=== PATIENT | male | born 1960 | race Caucasian/White ===

== ENCOUNTER 2017-12-18 09:44 | Observation (INO) | payer OTHER ==
[~2017-12-18 09:44] MED LIST: CEFAZOLIN 2 GM/50 ML (PMX) 50 ML IVPB; ONDANSETRON 4 MG INJ; SOD CHLORIDE 0.9% 100 ML, TRANEXAMIC ACID 3,000 MG IRR; TRANEXAMIC ACID 1,000 MG/10 ML VIAL
[2017-12-18] MEDS ORDERED: PROPOFOL 20 ML (10:37)
[2017-12-18] MEDS ORDERED: MIDAZOLAM 1 MG/ML 2 ML INJ (10:37)
[2017-12-18] MEDS ORDERED: FENTAnyl 50 MCG/ML VIAL (10:37)
[2017-12-18] MEDS ORDERED: LIDOCAINE 100 MG SYRINGE (10:37)
[2017-12-18] MEDS ORDERED: ACETAMINOPHEN 1000MG/100ML IV 100 ML (10:37)
[2017-12-18] MEDS: GABAPENTIN 300 MG CAP PO ×2 (11:02→20:36)
[2017-12-18] MEDS: DEXAMETHASONE 1 MG TAB PO (11:02)
[2017-12-18] MEDS: traMADol 50 MG TAB PO (11:03)
[2017-12-18] MEDS ORDERED: morphine SULFATE/PF (10 MG/10 ML) INJ (12:27)
[2017-12-18] MEDS ORDERED: CA CHLORIDE 10% 10 ML SYRINGE (13:00)
[2017-12-18] MEDS ORDERED: POLYMYXIN/BACITRACIN 1L IRRIG (13:00)
[2017-12-18] MEDS ORDERED: THROMBIN 5000 UNIT VIAL (13:00)
[2017-12-18] MEDS ORDERED: PHENYLephrine (100 MCG/ML) 5ML SYG (13:09)
[2017-12-18] MEDS: BUPIVACAINE 0.5% (SDV) 30 ML, morphine SULFATE (PF) 8 MG, EPINEPHrine 0.3 MG, KETOROLAC... IRR (13:30)
[2017-12-18] MEDS: TRANEXAMIC ACID 1,000 MG in DEXTROSE 5% 100 ML IVPB (13:31)
[2017-12-18] MEDS: LACTATED RINGER'S 1,000 ML IV ×3 (14:21→22:43)
[2017-12-18] MEDS ORDERED: ACETAMINOPHEN 500 MG TAB PO (15:00)
[2017-12-18] MEDS ORDERED: HYDROmorphONE 0.5 MG/0.5 ML SYG IV ×2 (15:00→15:30)
[2017-12-18] MEDS ORDERED: ZOLPIDEM 5 MG TAB PO (15:00)
[2017-12-18] MEDS ORDERED: morphine 2 MG INJ IV ×2 (15:00)
[2017-12-18] MEDS ORDERED: ONDANSETRON 4 MG INJ IV ×2 (15:00)
[2017-12-18] MEDS ORDERED: DIPHENHYDRAMINE 50 MG INJ IV ×2 (15:00→15:30)
[2017-12-18] MEDS ORDERED: KETOROLAC 15 MG INJ IV (15:00)
[2017-12-18] MEDS ORDERED: LABETALOL HCL 20MG INJ IV (15:00)
[2017-12-18] MEDS ORDERED: hydrALAzine 20 MG INJ IV (15:00)
[2017-12-18] MEDS: TRANEXAMIC ACID 1,000 MG in DEXTROSE 5% 100 ML IV ×2 (15:01→15:28)
[2017-12-18] MEDS: CEFAZOLIN 1 GM/50 ML (PMX) 50 ML IVPB (15:28)
[2017-12-18 15:29] LABS: ADD MAN DIFF? NO
[2017-12-18] MEDS ORDERED: MEPERIDINE 25 MG INJ IV (15:30)
[2017-12-18 15:31] LABS: BASOPHIL # 0.1 10^3/ul (0.0-0.1); EOSINOPHILS # 0.1 10^3/ul (0.0-0.5); EOSINOPHILS % 0.9 % (0.0-7.0); HEMATOCRIT 34.1 % (42.0-52.0); HEMOGLOBIN 10.8 g/dl (14.0-18.0); LYMPHOCYTES # 1.4 10^3/ul (0.8-2.9); LYMPHOCYTES % 14.3 % (15.0-51.0); MEAN CORPUSCULAR HEMOGLOBIN 25.2 pg (29.0-33.0); MEAN CORPUSCULAR HGB CONC 31.7 g/dl (32.0-37.0); MEAN CORPUSCULAR VOLUME 79.7 fl (82.0-101.0); MEAN PLATELET VOLUME 9.2 fl (7.4-10.4); MONOCYTE # 0.6 10^3/ul (0.3-0.9); NEUTROPHIL # 7.2 10^3/ul (1.6-7.5); NEUTROPHILS % 76.8 % (39.0-77.0); PLATELET COUNT 236 10^3/UL (140-415); RED BLOOD COUNT 4.28 10^6/ul (4.70-6.10); RED CELL DISTRIBUTION WIDTH 16.9 % (11.5-14.5)
[2017-12-18 15:31] LABS: WHITE BLOOD COUNT 9.4 10^3/ul (4.8-10.8)
[2017-12-18] MEDS: DEXAMETHASONE 2 MG TAB PO (17:13)
[2017-12-18] MEDS: SENNA/DOCUSATE NA (8.6MG/50MG) TAB PO (20:36)
[2017-12-19] MEDS: CEFAZOLIN 1 GM/50 ML (PMX) 50 ML IVPB ×2 (00:15→06:15)
[2017-12-19] MEDS: DEXAMETHASONE 2 MG TAB PO ×3 (00:15→14:37)
[2017-12-19] MEDS: LACTATED RINGER'S 1,000 ML IV ×5 (00:21→20:58)
[2017-12-19] MEDS: MAGNESIUM HYDROXIDE 30ML CUP PO (03:25)
[2017-12-19 05:09] LABS: ADD MAN DIFF? NO
[2017-12-19 05:13] LABS: BASOPHILS % 0.2 % (0.0-2.0); HEMATOCRIT 33.9 % (42.0-52.0); HEMOGLOBIN 10.7 g/dl (14.0-18.0); LYMPHOCYTES # 0.9 10^3/ul (0.8-2.9); LYMPHOCYTES % 5.7 % (15.0-51.0); MEAN CORPUSCULAR HEMOGLOBIN 25.2 pg (29.0-33.0); MEAN CORPUSCULAR HGB CONC 31.6 g/dl (32.0-37.0); MEAN PLATELET VOLUME 9.2 fl (7.4-10.4); MONOCYTE # 1.1 10^3/ul (0.3-0.9); MONOCYTES % 6.9 % (0.0-11.0); NEUTROPHIL # 13.6 10^3/ul (1.6-7.5); NEUTROPHILS % 86.6 % (39.0-77.0); PLATELET COUNT 245 10^3/UL (140-415); RED BLOOD COUNT 4.24 10^6/ul (4.70-6.10); RED CELL DISTRIBUTION WIDTH 16.2 % (11.5-14.5)
[2017-12-19 05:13] LABS: WHITE BLOOD COUNT 15.7 10^3/ul (4.8-10.8)
[2017-12-19] MEDS: PANTOPRAZOLE (EC) 40 MG TAB PO (06:16)
[2017-12-19] MEDS: ASPIRIN 81 MG TAB PO (09:13)
[2017-12-19] MEDS: LOSARTAN 50 MG TAB PO (09:13)
[2017-12-19] MEDS: SENNA/DOCUSATE NA (8.6MG/50MG) TAB PO ×2 (09:13→20:47)
[2017-12-19] MEDS: OXYCODONE/ACETAMINOPHEN (5/325) TAB PO ×2 (14:39→20:50)
[2017-12-19] MEDS: GABAPENTIN 300 MG CAP PO (20:47)
[2017-12-20] MEDS: MAGNESIUM HYDROXIDE 30ML CUP PO (02:51)
[2017-12-20 04:56] LABS: WHITE BLOOD COUNT 14.2 10^3/ul (4.8-10.8)
[2017-12-20 04:56] LABS: ABNORMAL IP MESSAGE 1; ADD MAN DIFF? NO; BASOPHIL # 0.1 10^3/ul (0.0-0.1); BASOPHILS % 0.4 % (0.0-2.0); EOSINOPHILS % 0.1 % (0.0-7.0); HEMATOCRIT 32.8 % (42.0-52.0); HEMOGLOBIN 10.4 g/dl (14.0-18.0); LYMPHOCYTES # 2.3 10^3/ul (0.8-2.9); LYMPHOCYTES % 15.8 % (15.0-51.0); MEAN CORPUSCULAR HEMOGLOBIN 25.4 pg (29.0-33.0); MEAN CORPUSCULAR HGB CONC 31.7 g/dl (32.0-37.0); MEAN PLATELET VOLUME 9.5 fl (7.4-10.4); MONOCYTE # 1.6 10^3/ul (0.3-0.9); MONOCYTES % 11.4 % (0.0-11.0); NEUTROPHIL # 10.2 10^3/ul (1.6-7.5); NEUTROPHILS % 71.9 % (39.0-77.0); PLATELET COUNT 242 10^3/UL (140-415); POSITIVE DIFF @See below; RED CELL DISTRIBUTION WIDTH 16.6 % (11.5-14.5)
[2017-12-20] MEDS: PANTOPRAZOLE (EC) 40 MG TAB PO (05:49)
[2017-12-20] MEDS: LACTATED RINGER'S 1,000 ML IV ×4 (06:21→16:58)
[2017-12-20] MEDS: OXYCODONE/ACETAMINOPHEN (5/325) TAB PO ×3 (06:42→18:38)
[2017-12-20] MEDS: ASPIRIN 81 MG TAB PO (10:05)
[2017-12-20] MEDS: SENNA/DOCUSATE NA (8.6MG/50MG) TAB PO ×2 (10:11→20:17)
[2017-12-20] MEDS: LOSARTAN 50 MG TAB PO (10:11)
[2017-12-20] MEDS: GABAPENTIN 300 MG CAP PO (20:17)
== END 2017-12-20 21:20 | disposition home health service (06) ==
LOC: REC 09:44 → MS1 15:53
PROVIDERS: Orthopaedic Surgery
DX: M16.12 Unilateral primary osteoarthritis, left hip (principal); I10 Essential (primary) hypertension; D50.9 Iron deficiency anemia, unspecified; Z79.82 Long term (current) use of aspirin
CPT/HCPCS: 27130; 72170; 73530; 85025; 86999; 87086; 97110; 97116; 97163; 97530; 99217